=== PATIENT | male | born 1950 | race Caucasian/White ===

== ENCOUNTER 2023-01-09 12:51 | Emergency (ER) | payer MEDICARE ==
[2023-01-09] MEDS ORDERED: SODIUM CHLORIDE 0.9% 500 ML 500 ML IV STA (13:05)
[2023-01-09 13:17] LABS: Glucose,Whole Blood 161 mg/dL (70-110)
--- NOTE | 2023-01-09 13:18 | ED ---
General Adult HPI - General Stated complaint: TIA Time Seen by Provider: 01/09/23 12:55 Source: patient, RN notes reviewed, old records reviewed Limitations: no limitations - History of Present Illness Initial comments: 72-year-old male presenting for evaluation of left-sided weakness, and expressive aphasia. Symptoms began at approximately 12:15 and resolved very quickly. The patient was transported by paramedics without focal neurological findings. He was hypertensive during transport. Patient has no prior history of CVA or TIA. He has history of hypertension and diabetes. No chest pain, no fever. - Related Data Allergies Allergy/AdvReac Type Severity Reaction Status Date / Time No Known Allergies Allergy Verified 01/09/23 13:19 Review of Systems ROS Statement: Those systems with pertinent positive or pertinent negative responses have been documented in the HPI. ROS Other: All systems not noted in ROS Statement are negative. General Exam General appearance: alert, in no apparent distress Head exam: Present: atraumatic, normocephalic Eye exam: Present: normal appearance, PERRL ENT exam: Present: normal exam Neck exam: Present: normal inspection. Absent: tenderness, meningismus Respiratory exam: Present: normal lung sounds bilaterally. Absent: respiratory distress, wheezes Cardiovascular Exam: Present: regular rate, normal rhythm GI/Abdominal exam: Present: soft. Absent: distended, tenderness Extremities exam: Present: normal inspection, normal capillary refill. Absent: pedal edema Neurological exam: Present: alert, oriented X3, CN II-XII intact, other (NIH of 0). Absent: motor sensory deficit Psychiatric exam: Present: normal affect, normal mood Skin exam: Present: warm, dry, intact. Absent: cyanosis, diaphoretic Course Vital Signs 01/09/23 01/09/23 01/09/23 13:04 13:45 13:53 Temperature 97.6 F Pulse Rate 89 91 84 Respiratory 18 18 Rate Blood Pressure 195/105 173/103 170/90 O2 Sat by Pulse 98 97 99 Oximetry - Reevaluation(s) Reevaluation #1: 01/09/23 13:00 Patient arrives to emergency department without current complaint and NIH is 0. Symptoms initially began at 12:15. Reevaluation #2: 01/09/23 13:14 Patient developed complete left-sided hemiparesis and dysarthria with expressive aphasia. 06/22/23 13:[address] Snell, both agreed that TPA is appropriate for this patient. Both patient and patient's agreed and consent to administration. Reevaluation #3: 01/09/23 14:20 Dr. Snell requests transfer to [facility] Medical Decision Making - Medical Decision Making Was pt. sent in by a medical professional or institution (, [facility], [employer], urgent care, hospital, or fdc...) When possible be specific @ -No Did you speak to anyone other than the patient for history (EMS, parent, family, police, friend...)? What history was obtained from this source @ -[Yes Did you review nursing and triage notes (agree or disagree)? Why? @ -I reviewed and agree with nursing and triage notes Were old charts reviewed (outside hosp., previous admission, EMS record, old EKG, old radiological studies, urgent care reports/EKG's, fdc records)? Report findings @ -No old charts were reviewed Differential Diagnosis (chest pain, altered mental status, abdominal pain women, abdominal pain men, vaginal bleeding, weakness, fever, dyspnea, syncope, headache, dizziness, GI bleed, back pain, seizure, CVA, palpatations, mental health, musculoskeletal)? @ -Differential CVA Ischemic stroke, hemorrhagic stroke, brain tumor, atypical migraine, Wernicke's encephalopathy, seizure, multiple sclerosis, meningitis, encephalitis, hypoglycemia, Guillain-Thomson, electrolytes disturbance, myasthenia gravis.... This is not meant to be an all-inclusive list EKG interpreted by me (3pts min.). @ -[EKG: Sinus rhythm rate of 79, NV interval 193, QRS duration 108, QTC [address] segment elevation X-rays interpreted by me (1pt min.). @ -None done CT interpreted by me (1pt min.). @ -None done U/S interpreted by me (1pt. min.). @ -None done What testing was considered but not performed or refused? (CT, X-rays, U/S, labs)? Why? @ -None What meds were considered but not given or refused? Why? @ -None Did you discuss the management of the patient with other professionals (professionals i.e. , [facility], [employer], lab, RT, psych nurse, social insurance specialist, impregnator, teacher, medical officer psychiatry, immigration case worker)? Give summary @ -[Stroke Dr. Snell. Was smoking cessation discussed for >3mins.? @ -No Was critical care preformed (if so, how long)? @ -[yes 35 Were there social determinants of health that impacted care today? How? (Homelessness, low income, unemployed, alcoholism, drug addiction, transportation, low edu. Level, literacy, decrease access to med. care, half-way, rehab)? @ -No Was there de-escalation of care discussed even if they declined (Discuss DNR or withdrawal of care, Hospice)? DNR status @ -No What co-morbidities impacted this encounter? (DM, HTN, Smoking, COPD, CAD, Cancer, CVA, ARF, Chemo, Hep., AIDS, mental health diagnosis, sleep apnea, morbid obesity)? @ -Diabetes, hypertension Was patient admitted / discharged? Hospital course, mention meds given and route, prescriptions, significant lab abnormalities, going to OR and other pertinent info. @ -72-year-old male presenting with stroke symptoms initially resolved however shortly after eating in the emergency department his symptoms returned and were significant, NIH of 15 with left hemiplegia, dysarthria, expressive aphasia. Patient was a TPA candidate, TPA was immediately ordered the patient was taken for CT and CT angiography. CT was negative for intracranial hemorrhage and TPA was administered. There was near complete resolution in patient's symptoms upon reevaluation. The CT angiography showed ICA occlusion this was reviewed by the interventionalist and felt to require transfer. The patient will be transferred to [facility]. Undiagnosed new problem with uncertain prognosis? @ -No Drug Therapy requiring intensive monitoring for toxicity (Heparin, Nitro, Insu kyleigh, Cardizem)? @ -No Were any procedures done? @ -No Diagnosis/symptom? @ -Acute CVA status post TPA Acute, or Chronic, or Acute on Chronic? @ -Acute Uncomplicated (without systemic symptoms) or Complicated (systemic symptoms)? @ -Complicated Side effects of treatment? @ -No Exacerbation, Progression, or Severe Exacerbation? @ -No Poses a threat to life or bodily function? How? (Chest pain, [place], [place], pneumonia, PE, COPD, DKA, ARF, appy, cholecystitis, CVA, Diverticulitis, Homicidal, Suicidal, threat to staff... and all critical care pts) @ -Yes, CVA - Lab Data Result diagrams: 01/09/23 13:53 Lab Results 01/09/23 01/09/23 Range/Units 13:16 13:53 WBC 8.0 (3.8-10.6) k/uL RBC 4.73 (4.30-5.90) m/uL Hgb 13.4 (13.0-17.5) gm/dL Hct 39.9 (39.0-53.0) % MCV 84.5 (80.0-100.0) fL MCH 28.3 (25.0-35.0) pg MCHC 33.5 (31.0-37.0) g/dL RDW 13.6 (11.5-15.5) % Plt Count 198 (150-450) k/uL MPV 8.8 Neutrophils % 77 % Lymphocytes % 14 % Monocytes % 5 % Eosinophils % 3 % Basophils % 1 % Neutrophils # 6.2 (1.3-7.7) k/uL Lymphocytes # 1.1 (1.0-4.8) k/uL Monocytes # 0.4 (0-1.0) k/uL Eosinophils # 0.2 (0-0.7) k/uL Basophils # 0.0 (0-0.2) k/uL POC Glucose (mg/dL) 161 H (70-110) mg/dL POC Glu Creative Developer ID [email or web address] Critical Care Time Critical Care Time: Yes Total Critical Care Time: 35 Disposition Clinical Impression: Cerebrovascular accident (CVA) Disposition: ADMITTED IP TO THIS HOSP Condition: Serious Is patient prescribed a controlled substance at d/c from ED?: No Referrals: None,Stated [REFERRING] - 1-2 days Time of Disposition: 14:00 - Out of Hospital Transfer - Req. Specs Out of Hospital Transfer - Requested Specifics: Other Emergency Center ([facility]
[2023-01-09] MEDS ORDERED: ALTEPLASE BOLUS FOR STROKE 9 MG in EMPTY SYRINGE 1 SYR IV STA (13:20)
[2023-01-09] MEDS ORDERED: ALTEPLASE 81 MG in EMPTY BAG 1 BAG IV STA (13:20)
[2023-01-09] MEDS ORDERED: Alteplase PER PHARMACY Stroke 1 EACH MISC MISCELLANE PRN (13:23)
[2023-01-09] MEDS ORDERED: SODIUM CHLORIDE 0.9% 1,000 ML IV SCH (13:45)
--- NOTE | 2023-01-09 13:52 | XR ---
EXAMINATION TYPE: XR chest 1V portable DATE OF EXAM: 01/09/2023 COMPARISON: NONE HISTORY: Mental status change TECHNIQUE: Single frontal view of the chest is obtained. FINDINGS: A limited inspiration. No evidence consolidation, pleural effusion or pneumothorax. Diffus e osteopenia. Heart size upper limits of normal with no overt failure. Underlying COPD suspected. IMPRESSION: No acute process.
--- NOTE | 2023-01-09 13:53 | CT ---
EXAMINATION TYPE: CT brain wo con DATE OF EXAM: 01/09/2023 COMPARISON: None HISTORY: Neuro deficits, code stroke CT DLP: 1196.[address] of the brain was performed. The ventricles, basal cisterns and sulci overlying the cerebral convexities demonstrate mild enlargem ent. There is no evidence for intracranial hemorrhage or sulcal effacement. There is decreased attenuation about the periventricular white matter and deep white matter of both c erebral hemispheres, compatible with chronic small vessel ischemia. Differential diagnosis does inclu de demyelination. No mass effects are seen.No midline shift. Osseous calvarium is intact. Chronic paranasal sinusitis. If symptoms persist consider MRI. IMPRESSION: 1. Age related atrophic and chronic small vessel ischemic change without acute intracranial process s een at this time.
--- NOTE | 2023-01-09 14:00 | CT ---
EXAMINATION TYPE: CT angio head neck DATE OF EXAM: 01/09/2023 COMPARISON: HISTORY: Neuro deficits code stroke CT DLP: 433.2 mGycm CONTRAST: Performed with IV Contrast, patient injected with 65 mL of Isovue 370. Combination Contrast CTA cervical carotids and [place] CTA cervical carotids with 3-D recons truction Contrast CTA of the cervical carotids was performed 3-D reconstruction imaging obtained at a separate workstation. Right carotid system: Mild plaque is seen of the right common carotid artery. There is occlusion of t he right internal carotid artery. ECA is patent. Right vertebral artery appears unremarkable. Left carotid system: Mild plaque is seen of the left common carotid artery. There is mild plaque als o noted at the carotid bulb and proximal ICA. No significant diameter reduction. ECA is patent. Lef t vertebral artery appears unremarkable. 7 mm pulmonary nodule right upper lobe requires further evaluation with CT chest which can be perform ed on an outpatient basis. Chronic pansinusitis. IMPRESSION: 1. Occlusion right ICA. 2. Calcified plaque left ICA without hemodynamically significant stenosis. CTA [place] with 3-D reconstruction Contrast CTA of the [place] was performed 3-D reconstruction imaging obtained at a separate workstation. Vertebrobasilar system as well as intracranial portions of the internal carotid arteries and their ma saul tributaries are patent. Occlusion right ICA. Otherwise symmetric opacification of the intracrani al vasculature. I do not see evidence for sizable aneurysm or vascular malformation. Please note MRI provides greater sensitivity and specificity. Visualized brain appears grossly unremarkable. IMPRESSION: 1. Occlusion right ICA. NASCET criteria was used in interpretation of this exam?
[2023-01-09 14:06] LABS: Basophils % (A) 1 %; Eosinophils # (A) 0.2 k/uL (0-0.7); Eosinophils % (A) 3 %; HCT 39.9 % (39.0-53.0); HGB 13.4 gm/dL (13.0-17.5); Lymphocytes # (A) 1.1 k/uL (1.0-4.8); Lymphocytes % (A) 14 %; MCH 28.3 pg (25.0-35.0); MCHC 33.5 g/dL (31.0-37.0); MCV 84.5 fL (80.0-100.0); Mean Platelet Volume 8.8; Monocytes # (A) 0.4 k/uL (0-1.0); Monocytes % (A) 5 %; Neutrophils # (A) 6.2 k/uL (1.3-7.7); Neutrophils % (A) 77 %; Platelet Count 198 k/uL (150-450); RBC 4.73 m/uL (4.30-5.90); RDW 13.6 % (11.5-15.5)
[2023-01-09] MEDS ORDERED: SODIUM CHLORIDE 0.9% 50 ML MINI-BAG IV ONE (14:20)
[2023-01-09 14:21] LABS: INR 0.9 (<1.2); Prothrombin Time 9.7 sec (9.0-12.0)
[2023-01-09 14:32] LABS: Partial Thromboplastin Time 19.8 sec (22.0-30.0)
[2023-01-09 14:40] LABS: ALT 17 U/L (4-49); AST 17 U/L (17-59); African American GFR (CKD) 58 (>60 ml/min/1.73 sqM); Albumin 4.1 g/dL (3.5-5.0); Alkaline Phosphatase 80 U/L (38-126); Anion Gap 10 mmol/L; Blood Urea Nitrogen 28 mg/dL (9-20); Calcium 8.8 mg/dL (8.4-10.2); Carbon Dioxide 21 mmol/L (22-30); Chloride 108 mmol/L (98-107); Creatine Kinase 33 U/L (55-170); Glucose 135 mg/dL (74-99); Non-African American GFR(CKD) 50 (>60 ml/min/1.73 sqM); Potassium 4.5 mmol/L (3.5-5.1); Sodium 139 mmol/L (137-145); Total Bilirubin 0.4 mg/dL (0.2-1.3); Total Protein 6.7 g/dL (6.3-8.2)
[2023-01-09 15:47] VITALS: RESP 19
[2023-01-09 15:58] VITALS: BP 178/85; PULSE 82; TEMP 98.3
== END 2023-01-09 15:30 | disposition other institution (70) ==
LOC: EC 12:51
DX: I63.9 Cerebral infarction, unspecified (principal); R29.700 NIHSS score 0; E11.9 Type 2 diabetes mellitus without complications; I10 Essential (primary) hypertension
CPT/HCPCS: 36415; 93005; 80053; 82550; 84484; 85025; 85610; 85730; 71045; 70496; 70450; 70498; 99291; 96365; J2997; Q9967

== ENCOUNTER 2023-03-21 14:32 | Emergency (ER) | payer MEDICARE ==
[2023-03-21 14:44] VITALS: TEMP 97.6
[2023-03-21 16:33] LABS: Appearance,Urine Clear (Clear); Bilirubin,Urine Negative (Negative); Blood,Urine Moderate (Negative); Color,Urine Orange; Glucose,Urine (UA) 4+ (Negative); Ketones,Urine Negative (Negative); Leukocyte Esterase,Urine Negative (Negative); Mucus,Urine Rare /hpf; Nitrite,Urine Positive (Negative); PH, Urine 5.5 (5.0-8.0); Protein,Urine Negative (Negative); RBC,Urine 72 /hpf (0-5); Specific Gravity,Urine 1.025 (1.001-1.035); Urobilinogen,Urine <2.0 mg/dL (<2.0); WBC,Urine <1 /hpf (0-5)
--- NOTE | 2023-03-21 16:40 | ED ---
General Adult HPI - General Chief complaint: Urogenital Stated complaint: urination trouble Time Seen by Provider: 03/21/23 15:04 Source: patient Mode of arrival: ambulatory Limitations: no limitations - History of Present Illness Initial comments: 73-year-old male with recent diagnosis of CVA who presents emergency room with urinary retention. Patient has CVA and was transferred from [facility] to [facility]. He underwent angiography where he had injury to his right femoral artery. Patient had to go back for surgery last Friday to have the vessel repaired by vascular surgery with evacuation of bleeding. States that he had a catheter in during his hospital stay. They did take it out before he was discharged home earlier this week. He states that he has been home and the past 4 days he has had suprapubic discomfort. He has been unable to sleep at night as he has been getting up frequently to use the bathroom. He has had very low urine output. He denies previous history of BPH. Does not take Flomax but was given this in the hospital. He denies fevers. He went to an urgent care yesterday who placed him on Pyridium. States it made his urine orange however did not help his symptoms. No other alleviating, precipitating or modifying factors - Related Data Home Medications Medication Instructions Recorded Confirmed Empagliflozin [Jardiance] 25 mg PO W/SUPPER 01/09/23 01/09/23 amLODIPine BESYLATE/BENAZEPRIL 1 cap PO DAILY 01/09/23 01/09/23 [amLODIPine BESYLATE/BENAZEPRIL 5-10 mg] metFORMIN HCL 1,000 mg PO BID 01/09/23 01/09/23 Allergies Allergy/AdvReac Type Severity Reaction Status Date / Time latex Allergy Rash/Hives Verified 03/21/23 14:44 Penicillins Allergy Unknown Verified 03/21/23 14:44 Childhood Review of Systems ROS Statement: Those systems with pertinent positive or pertinent negative responses have been documented in the HPI. ROS Other: All systems not noted in ROS Statement are negative. 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 History of Any Multi-Drug Resistant Organisms: None Reported Past Surgical History: No Surgical Hx Reported Past Psychological History: No Psychological Hx Reported Smoking Status: Never smoker Past Alcohol Use History: Rare Past Drug Use History: None Reported General Exam Limitations: no limitations General appearance: alert, in no apparent distress Head exam: Present: atraumatic, normocephalic, normal inspection Eye exam: Present: normal appearance, PERRL, EOMI. Absent: scleral icterus, con junctival injection, periorbital swelling ENT exam: Present: normal exam, mucous membranes moist Neck exam: Present: normal inspection. Absent: tenderness, meningismus, lymphadenopathy Respiratory exam: Present: normal lung sounds bilaterally. Absent: respiratory distress, wheezes, rales, rhonchi, stridor Cardiovascular Exam: Present: regular rate, normal rhythm, normal heart sounds. Absent: systolic murmur, diastolic murmur, rubs, gallop, clicks GI/Abdominal exam: Present: soft, distended, tenderness (Suprapubic), normal bowel sounds, other (Right groin incision is clean, dry and intact. No dehiscence of the tissue). Absent: guarding, rebound, rigid Extremities exam: Present: normal inspection, full ROM, normal capillary refill. Absent: tenderness, pedal edema, joint swelling, calf tenderness Back exam: Present: normal inspection Neurological exam: Present: alert, oriented X3, CN II-XII intact Psychiatric exam: Present: normal affect, normal mood Skin exam: Present: warm, dry, intact, normal color. Absent: rash Course Vital Signs 03/21/23 03/21/23 14:40 17:14 Temperature 97.6 F Pulse Rate 94 80 Respiratory 20 18 Rate Blood Pressure 121/78 131/72 O2 Sat by Pulse 100 98 Oximetry Medical Decision Making - Medical Decision Making Was pt. sent in by a medical professional or institution (, PA, [employer], urgent care, hospital, or custodial...) When possible be specific @ -No Did you speak to anyone other than the patient for history (EMS, parent, family, police, friend...)? What history was obtained from this source @ -I spoke with the patient's Did you review nursing and triage notes (agree or disagree)? Why? @ -I reviewed and agree with nursing and triage notes Were old charts reviewed (outside hosp., previous admission, EMS record, old EKG, old radiological studies, urgent care reports/EKG's, custodial records)? Report findings @ -No old charts were reviewed Differential Diagnosis (chest pain, altered mental status, abdominal pain women, abdominal pain men, vaginal bleeding, weakness, fever, dyspnea, syncope, headache, dizziness, GI bleed, back pain, seizure, CVA, palpatations, mental health, musculoskeletal)? @ -Urinary retention, cauda equina, UTI, kidney stone EKG interpreted by me (3pts min.). @ -Not done X-rays interpreted by me (1pt min.). @ -None done CT interpreted by me (1pt min.). @ -None done U/S interpreted by me (1pt. min.). @ -None done What testing was considered but not performed or refused? (CT, X-rays, U/S, labs)? Why? @ -None What meds were considered but not given or refused? Why? @ -None Did you discuss the management of the patient with other professionals (professionals i.e. , PA, [employer], lab, RT, psych nurse, social media assistant, pulverizer, teacher, founder and chief executive officer, correctional case manager)? Give summary @ -No Was smoking cessation discussed for >3mins.? @ -No Was critical care preformed (if so, how long)? @ -No Were there social determinants of health that impacted care today? How? (Homelessness, low income, unemployed, alcoholism, drug addiction, transportation, low edu. Level, literacy, decrease access to med. care, care home, rehab)? @ -No Was there de-escalation of care discussed even if they declined (Discuss DNR or withdrawal of care, Hospice)? DNR status @ -No What co-morbidities impacted this encounter? (DM, HTN, Smoking, COPD, CAD, Cancer, CVA, ARF, Chemo, Hep., AIDS, mental health diagnosis, sleep apnea, morbid obesity)? @ -CVA Was patient admitted / discharged? Hospital course, mention meds given and route, prescriptions, significant lab abnormalities, going to OR and other pertinent info. @ -Upon arrival patient was placed into room 17. A thorough history and physical exam is performed. Patient is bladder scan does have 1000 mL of urine in his bladder. Camacho catheter is placed. Patient does put out 1500 mL of urine. Urine sample does not demonstrate any signs of infection. At this time the patient will be discharged home with the catheter in place. Instructed that it must be removed within 1-2 weeks by the urologist. Surgical site looks intact. Return for any new or worsening symptoms. Patient was agreeable discharged in stable condition Undiagnosed new problem with uncertain prognosis? @ -No Drug Therapy requiring intensive monitoring for toxicity (Heparin, Nitro, Insul in, Cardizem)? @ -No Were any procedures done? @ -No Diagnosis/symptom? @ -Acute urinary retention, recent right femoral artery dissection Acute, or Chronic, or Acute on Chronic? @ -Acute Uncomplicated (without systemic symptoms) or Complicated (systemic symptoms)? @ -Complicated Side effects of treatment? @ -No Exacerbation, Progression, or Severe Exacerbation? @ -No Poses a threat to life or bodily function? How? (Chest pain, [place], [place], pneumonia, PE, COPD, DKA, ARF, appy, cholecystitis, CVA, Diverticulitis, Homicidal, Suicidal, threat to staff... and all critical care pts) @ -No - Lab Data Lab Results 03/21/23 Range/Units 15:45 Urine Color [place] Urine Appearance Clear (Clear) Urine pH 5.5 (5.0-8.0) Ur Specific [place] 1.025 (1.001-1.035) Urine Protein Negative (Negative) Urine Glucose (UA) 4+ H (Negative) Urine Ketones Negative (Negative) Urine Blood Moderate H (Negative) Urine Nitrite Positive (Negative) Urine Bilirubin Negative (Negative) Urine Urobilinogen <2.0 (<2.0) mg/dL Ur Leukocyte Esterase Negative (Negative) Urine RBC 72 H (0-5) /hpf Urine WBC <1 (0-5) /hpf Urine Mucus Rare H (None) /hpf Disposition Clinical Impression: Urinary retention Disposition: HOME SELF-CARE Condition: Stable Instructions (If sedation given, give patient instructions): Urinary Retention in Men (ED) Additional Instructions: Please follow-up with the urologist. The catheter should be in place for approximately 1-2 weeks. Return for any new or worsening symptoms Is patient prescribed a controlled substance at d/c from ED?: No Referrals: Dane Parada MD [Primary Care Provider] - 1-2 days Oracio Bryan MD [STAFF PHYSICIAN] - 1-2 days Time of Disposition: 16:40
[2023-03-21 17:17] VITALS: BP 131/72; PULSE 80; RESP 18
== END 2023-03-21 17:19 | disposition home or self-care (01) ==
LOC: EC 14:32
DX: R33.9 Retention of urine, unspecified (principal); I10 Essential (primary) hypertension; Z88.0 Allergy status to penicillin; Z91.040 Latex allergy status; Z79.899 Other long term (current) drug therapy
CPT/HCPCS: 51702; 81001; 99284

== ENCOUNTER 2023-04-01 03:58 | Emergency (ER) | payer MEDICARE ==
--- NOTE | 2023-04-01 06:34 | ED ---
General Adult HPI - History of Present Illness Initial comments: Patient's chart was performed during downtime. Please see downtime documentation. Briefly, patient is a 73-year-old male he has history of urinary retention. He was seen at urologist office yesterday for urinary retention. Camacho catheter was removed. The Camacho catheter had been in there for several days. Patient was instructed to come to the emergency department if he was not able to urinate. ED course: Patient seen and evaluated at bedside. Camacho catheter was placed with drainage of approximately 1000 mL of urine. Patient reported immediate relief. He still to follow-up again with urology. - Related Data Home Medications Medication Instructions Recorded Confirmed Empagliflozin [Jardiance] 25 mg PO W/SUPPER 01/09/23 01/09/23 amLODIPine BESYLATE/BENAZEPRIL 1 cap PO DAILY 01/09/23 01/09/23 [amLODIPine BESYLATE/BENAZEPRIL 5-10 mg] metFORMIN HCL 1,000 mg PO BID 01/09/23 01/09/23 Allergies Allergy/AdvReac Type Severity Reaction Status Date / Time latex Allergy Rash/Hives Verified 03/21/23 14:44 Penicillins Allergy Unknown Verified 03/21/23 14:44 Childhood Review of Systems ROS Statement: Those systems with pertinent positive or pertinent negative responses have been documented in the HPI. ROS Other: All systems not noted in ROS Statement are negative. 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 History of Any Multi-Drug Resistant Organisms: None Reported Past Surgical History: No Surgical Hx Reported Past Psychological History: No Psychological Hx Reported Smoking Status: Never smoker Past Alcohol Use History: Rare Past Drug Use History: None Reported Disposition Clinical Impression: Urinary retention Disposition: HOME SELF-CARE Condition: Good Instructions (If sedation given, give patient instructions): Urinary Retention in Men (ED) Is patient prescribed a controlled substance at d/c from ED?: No Referrals: Oracio Bryan MD [STAFF PHYSICIAN] - 1-2 days Time of Disposition: 06:34
== END 2023-04-01 06:30 | disposition home or self-care (01) ==
LOC: EC 03:58
DX: R33.9 Retention of urine, unspecified (principal); I10 Essential (primary) hypertension; E11.9 Type 2 diabetes mellitus without complications; Z79.84 Long term (current) use of oral hypoglycemic drugs; Z79.899 Other long term (current) drug therapy; Z88.0 Allergy status to penicillin; Z91.040 Latex allergy status
CPT/HCPCS: 51702; 99283

== ENCOUNTER 2023-04-29 20:16 | Emergency (ER) | payer MEDICARE ==
[2023-04-29 20:30] VITALS: BP 165/79; PULSE 129; RESP 24; TEMP 98.3
--- NOTE | 2023-04-29 20:58 | ED ---
General Adult HPI - General Chief complaint: Urogenital Stated complaint: Bladder retention Time Seen by Provider: 04/29/23 20:56 Source: patient, RN notes reviewed Mode of arrival: ambulatory Limitations: no limitations - History of Present Illness Initial comments: 73-year-old male presents emergency Department chief complaint unable to urinate. Patient states he had a kidney stone removal recently states he had a catheter was just removed 2 days ago. Patient states she's had issues with his prostate be enlarged in the past and has had multiple Camacho catheters. He is unable to urinate states he has lower abdominal pressure. - Related Data Home Medications Medication Instructions Recorded Confirmed Empagliflozin [Jardiance] 25 mg PO W/SUPPER 01/09/23 01/09/23 amLODIPine BESYLATE/BENAZEPRIL 1 cap PO DAILY 01/09/23 01/09/23 [amLODIPine BESYLATE/BENAZEPRIL 5-10 mg] metFORMIN HCL 1,000 mg PO BID 01/09/23 01/09/23 Previous Rx's Medication Instructions Recorded Sulfamethox-Tmp 800-160Mg [Bactrim 1 each PO Q12HR #14 tab 04/29/23 Ds] Allergies Allergy/AdvReac Type Severity Reaction Status Date / Time latex Allergy Rash/Hives Verified 04/29/23 20:22 Penicillins Allergy Unknown Verified 04/29/23 20:22 Childhood Review of Systems ROS Statement: Those systems with pertinent positive or pertinent negative responses have been documented in the HPI. ROS Other: All systems not noted in ROS Statement are negative. 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 History of Any Multi-Drug Resistant Organisms: None Reported Past Surgical History: No Surgical Hx Reported Past Psychological History: No Psychological Hx Reported Smoking Status: Never smoker Past Alcohol Use History: Rare Past Drug Use History: None Reported General Exam - General Exam Comments Initial Comments: Visual Physical Exam Vital signs reviewed General: Well-appearing, nontoxic, no acute distress. Head: Normocephalic, atraumatic Eyes: PERRLA, EOMI ENT: Airway patent Chest: Nonlabored breathing Skin: No visual rash, normal skin tone Neuro: Alert and oriented 3 Musculoskeletal: No gross abnormalities Limitations: no limitations General appearance: alert, in no apparent distress Head exam: Present: atraumatic, normocephalic, normal inspection Eye exam: Present: normal appearance, PERRL, EOMI. Absent: scleral icterus, conjunctival injection, periorbital swelling Respiratory exam: Present: normal lung sounds bilaterally. Absent: respiratory distress, wheezes, rales, rhonchi, stridor Cardiovascular Exam: Present: normal rhythm, tachycardia, normal heart sounds. Absent: systolic murmur, diastolic murmur, rubs, gallop, clicks GI/Abdominal exam: Present: soft, distended, tenderness, normal bowel sounds. Absent: guarding, rebound, rigid Back exam: Absent: CVA tenderness (R), CVA tenderness (L) Course Vital Signs 04/29/23 20:18 Temperature 98.3 F Pulse Rate 129 H Respiratory 24 Rate Blood Pressure 165/79 O2 Sat by Pulse 99 Oximetry Medical Decision Making - Medical Decision Making I completed the quick note portion of this chart Signed Cullen Nieto PA-C Was pt. sent in by a medical professional or institution (JULIA Prater, TANK CALIBRATOR, urgent care, hospital, or usp...) When possible be specific @ -No Did you speak to anyone other than the patient for history (EMS, parent, family, police, friend...)? What history was obtained from this source @ -No Did you review nursing and triage notes (agree or disagree)? Why? @ -I reviewed and agree with nursing and triage notes Were old charts reviewed (outside hosp., previous admission, EMS record, old EKG, old radiological studies, urgent care reports/EKG's, usp records)? Report findings @ -No old charts were reviewed Differential Diagnosis (chest pain, altered mental status, abdominal pain women, abdominal pain men, vaginal bleeding, weakness, fever, dyspnea, syncope, headache, dizziness, GI bleed, back pain, seizure, CVA, palpatations, mental health, musculoskeletal)? @ -Urinary retention, abdominal pain, UTI EKG interpreted by me (3pts min.). @ -None X-rays interpreted by me (1pt min.). @ -None done CT interpreted by me (1pt min.). @ -None done U/S interpreted by me (1pt. min.). @ -None done What testing was considered but not performed or refused? (CT, X-rays, U/S, labs)? Why? @ -None What meds were considered but not given or refused? Why? @ -None Did you discuss the management of the patient with other professionals (professionals i.e. , PA, TANK CALIBRATOR, lab, RT, psych nurse, social science analyst, procedure rn, teacher, canine enforcement officer, shoe parts caser)? Give summary @ -No Was smoking cessation discussed for >3mins.? @ -No Was critical care preformed (if so, how long)? @ -No Were there social determinants of health that impacted care today? How? (Homelessness, low income, unemployed, alcoholism, drug addiction, transportation, low edu. Level, literacy, decrease access to med. care, long-term, rehab)? @ -No Was there de-escalation of care discussed even if they declined (Discuss DNR or withdrawal of care, Hospice)? DNR status @ -No What co-morbidities impacted this encounter? (DM, HTN, Smoking, COPD, CAD, Cancer, CVA, ARF, Chemo, Hep., AIDS, mental health diagnosis, sleep apnea, morbid obesity)? @ -None Was patient admitted / discharged? Hospital course, mention meds given and route, prescriptions, significant lab abnormalities, going to OR and other pertinent info. @ -Camacho catheter was placed by RN patient had full relief of symptoms. Patient did have 1400ml of urine. Patient is discharged in stable condition. Undiagnosed new problem with uncertain prognosis? @ -No Drug Therapy requiring intensive monitoring for toxicity (Heparin, Nitro, Insulin, Cardizem)? @ -No Were any procedures done? @ -No Diagnosis/symptom? @ -Urinary retention Acute, or Chronic, or Acute on Chronic? @ -Acute Uncomplicated (without systemic symptoms) or Complicated (systemic symptoms)? @ -Uncomplicated Side effects of treatment? @ -No Exacerbation, Progression, or Severe Exacerbation? @ -No Poses a threat to life or bodily function? How? (Chest pain, [place], [place], pneumonia, PE, COPD, DKA, ARF, appy, cholecystitis, CVA, Diverticulitis, Homicidal, Suicidal, threat to staff... and all critical care pts) @ -No - Lab Data Lab Results 04/29/23 Range/Units 22:16 Urine Color Colorless Urine Appearance Clear (Clear) Urine pH 5.5 (5.0-8.0) Ur Specific [place] 1.022 (1.001-1.035) Urine Protein Trace H (Negative) Urine Glucose (UA) 4+ H (Negative) Urine Ketones Negative (Negative) Urine Blood Large H (Negative) Urine Nitrite Negative (Negative) Urine Bilirubin Negative (Negative) Urine Urobilinogen <2.0 (<2.0) mg/dL Ur Leukocyte Esterase Large H (Negative) Urine RBC 124 H (0-5) /hpf Urine WBC 76 H (0-5) /hpf Urine WBC Clumps Occasional H (None) /hpf Ur Squamous Epith Cells <1 (0-4) /hpf Urine Bacteria Occasional H (None) /hpf Urine Mucus Rare H (None) /hpf Disposition Clinical Impression: Urinary retention, UTI (urinary tract infection) Disposition: HOME SELF-CARE Condition: Stable Instructions (If sedation given, give patient instructions): Urinary Retention in Men (ED) Additional Instructions: Please return to the Emergency Department if symptoms worsen or any other concerns. Prescriptions: Sulfamethox-Tmp 800-160Mg [Bactrim Ds] 1 each PO Q12HR #14 tab Is patient prescribed a controlled substance at d/c from ED?: No Referrals: Dane Parada MD [Primary Care Provider] - 1-2 days Oracio Bryan MD [STAFF PHYSICIAN] - 1-2 days Time of Disposition: 23:00
[2023-04-29 22:53] LABS: Appearance,Urine Clear (Clear); Bacteria,Urine Occasional /hpf; Bilirubin,Urine Negative (Negative); Blood,Urine Large (Negative); Color,Urine Colorless; Glucose,Urine (UA) 4+ (Negative); Ketones,Urine Negative (Negative); Leukocyte Esterase,Urine Large (Negative); Mucus,Urine Rare /hpf; Nitrite,Urine Negative (Negative); PH, Urine 5.5 (5.0-8.0); Protein,Urine Trace (Negative); RBC,Urine 124 /hpf (0-5); Specific Gravity,Urine 1.022 (1.001-1.035); Squamous Epithelial Cell,Urine <1 /hpf (0-4); Urobilinogen,Urine <2.0 mg/dL (<2.0); WBC,Urine 76 /hpf (0-5)
[2023-04-29] MEDS ORDERED: SULFAMETHOX-TMP 800-160MG 1 EACH TAB PO STA (23:38)
== END 2023-04-30 00:15 | disposition home or self-care (01) ==
LOC: EC 20:16
DX: N39.0 Urinary tract infection, site not specified (principal); R33.9 Retention of urine, unspecified; I10 Essential (primary) hypertension; Z79.899 Other long term (current) drug therapy; Z88.0 Allergy status to penicillin; Z91.040 Latex allergy status
CPT/HCPCS: 51702; 81001; 87086; 99284

== ENCOUNTER → 2023-04-29 | Outpatient (CLI) | payer MEDICARE ==
[2023-04-29 15:14] LABS: Basophils # (A) 0.06 X 10*3/uL (0.00-0.10); Eosinophils % (A) 8.5 %; HCT 29.5 % (39.6-50.0); Lymphocytes # (A) 0.99 X 10*3/uL (0.90-5.00); Lymphocytes % (A) 16.9 %; MCH 27.8 pg (27.0-32.0); MCHC 30.5 d/dL (32.0-37.0); Mean Platelet Volume 11.3 FL (9.5-12.2); Monocytes # (A) 0.46 X 10*3/uL (0.20-1.00); Monocytes % (A) 7.8 %; NRBC Per 100 WBC 0 X 10*3/uL (0.00-0.01); Neutrophils # (A) 3.84 X 10*3/uL (1.80-7.70); Neutrophils % (A) 65.5 %; Platelet Count 256 X 10*3/uL (140-440); RBC 3.24 X 10*6/uL (4.40-5.60); WBC 5.87 X 10*3/uL (4.50-10.00)
== END | disposition home or self-care (01) ==
LOC: LABWHC1 08:49
PROVIDERS: ATTEND Family Medicine
DX: N17.9 Acute kidney failure, unspecified (principal)
CPT/HCPCS: 36415; 85025

== ENCOUNTER → 2023-05-22 | Outpatient (CLI) | payer MEDICARE ==
[2023-05-22 16:25] LABS: Blood Urea Nitrogen 21.6 mg/dL (9.0-27.0); Calcium 9.3 mg/dL (8.7-10.3); Carbon Dioxide 20.2 mmol/L (21.6-31.8); Chloride 107 mmol/L (96-109); Chol/HDL Ratio 1.52 Ratio; Glucose 184 mg/dL (70-110); Potassium 3.9 mmol/L (3.5-5.5); Prostate Specific Antigen 3.84 ng/mL (0.000-6.500); Sodium 142 mmol/L (135-145); VLDL Calculation 11.92 mg/dL (5.00-40.00)
[2023-05-22 17:59] LABS: Urine Creatinine 61.3 mg/dL (39.0-259.0)
== END | disposition home or self-care (01) ==
LOC: LABWHC1 09:06
PROVIDERS: ATTEND Family Medicine
DX: Z12.5 Encounter for screening for malignant neoplasm of prostate (principal); I10 Essential (primary) hypertension; E11.9 Type 2 diabetes mellitus without complications
CPT/HCPCS: 36415; 80048; 80061; 82043; 82570; 83036; 84153

== ENCOUNTER 2023-06-12 07:34 | Emergency (ER) | payer MEDICARE ==
[2023-06-12 08:16] VITALS: RESP 18
--- NOTE | 2023-06-12 08:17 | ED ---
General Adult HPI - General Chief complaint: Urogenital Stated complaint: urinary retention Time Seen by Provider: 06/12/23 07:56 Source: patient, RN notes reviewed Mode of arrival: ambulatory Limitations: no limitations - History of Present Illness Initial comments: 73-year-old male with past medical history significant for TURP procedure performed on 06/09/[address] Hernandez presents the emergency department with urinary retention. Patient reports that he had his Camacho catheter removed yesterday in the afternoon. He has not had a true urinary void since 3:30 PM. He reports having a small bit of trouble and increased urinary frequency feeling like he has to urinate every 30 minutes. Denies any fevers, nausea vomiting, flank pain, hematuria. - Related Data Home Medications Medication Instructions Recorded Confirmed Empagliflozin [Jardiance] 25 mg PO W/SUPPER 01/09/23 01/09/23 amLODIPine BESYLATE/BENAZEPRIL 1 cap PO DAILY 01/09/23 01/09/23 [amLODIPine BESYLATE/BENAZEPRIL 5-10 mg] metFORMIN HCL 1,000 mg PO BID 01/09/23 01/09/23 Previous Rx's Medication Instructions Recorded Sulfamethox-Tmp 800-160Mg [Bactrim 1 each PO Q12HR #14 tab 04/29/23 Ds] Allergies Allergy/AdvReac Type Severity Reaction Status Date / Time latex Allergy Rash/Hives Verified 06/12/23 07:55 Penicillins Allergy Unknown Verified 06/12/23 07:55 Childhood Review of Systems ROS Statement: Those systems with pertinent positive or pertinent negative responses have been documented in the HPI. ROS Other: All systems not noted in ROS Statement are negative. 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 History of Any Multi-Drug Resistant Organisms: None Reported Past Surgical History: No Surgical Hx Reported Past Psychological History: No Psychological Hx Reported Smoking Status: Never smoker Past Alcohol Use History: Rare Past Drug Use History: None Reported General Exam - General Exam Comments Initial Comments: General: Alert, in no acute distress Head: atraumatic normocephalic. Eyes PERRL, EOMI intact, mucous membranes moist Respiratory: Lungs clear to auscultation bilaterally Cardiovascular: Heart rate regular rate and rhythm Abdominal: Soft without guarding or rebound Extremities: Normal inspection with full range of motion and normal capillary refill Neuroogic: alert and oriented 3, CN II-XII intact, able to ambulate with steady gait Skin: warm dry and intact with normal color Limitations: no limitations Course Vital Signs 06/12/23 07:52 Temperature 98.2 F Pulse Rate 88 Respiratory 18 Rate Blood Pressure 149/94 O2 Sat by Pulse 99 Oximetry - Reevaluation(s) Reevaluation #1: 06/12/23 08:[address] Ashley, urologist director of clinical applications who recommends placing 18- Prydeinig coud to have patient follow-up with Dr. Bryan on Friday06/16/2023 Reevaluation #2: 06/12/23 08:45 patient reevaluated. 500 mL of clear yellow urine collection bag. Medical Decision Making - Medical Decision Making Was pt. sent in by a medical professional or institution (, PA, CERTIFIED PARALEGAL, urgent care, hospital, or residential...) When possible be specific @ -[No] Did you speak to anyone other than the patient for history (EMS, parent, family, police, friend...)? What history was obtained from this source @ -[No] Did you review nursing and triage notes (agree or disagree)? Why? @ -[I reviewed and agree with nursing and triage notes] Were old charts reviewed (outside hosp., previous admission, EMS record, old EKG, old radiological studies, urgent care reports/EKG's, residential records)? Report findings @ -[No old charts were reviewed] Differential Diagnosis (chest pain, altered mental status, abdominal pain women, abdominal pain men, vaginal bleeding, weakness, fever, dyspnea, syncope, headache, dizziness, GI bleed, back pain, seizure, CVA, palpatations, mental health, musculoskeletal)? @ -[not applicable] EKG interpreted by me (3pts min.). @ -[As above] X-rays interpreted by me (1pt min.). @ -[None done] CT interpreted by me (1pt min.). @ -[None done] U/S interpreted by me (1pt. min.). @ -[None done] What testing was considered but not performed or refused? (CT, X-rays, U/S, labs)? Why? @ -[None] What meds were considered but not given or refused? Why? @ -[None] Did you discuss the management of the patient with other professionals (professionals i.e. , PA, CERTIFIED PARALEGAL, lab, RT, psych nurse, social work msw, gas regulator repairer helper, teacher, promotion officer, shelter case manager)? Give summary @ -Is discussed with Dr. Pickering, urologist director of clinical applications who recommends consulting 18-Prydeinig coud and having him follow up with Dr. Hernandez on Friday06/16/2023 Was smoking cessation discussed for >3mins.? @ -[No] Was critical care preformed (if so, how long)? @ -[No] Were there social determinants of health that impacted care today? How? (Homelessness, low income, unemployed, alcoholism, drug addiction, transportation, low edu. Level, literacy, decrease access to med. care, long-term, rehab)? @ -[No] Was there de-escalation of care discussed even if they declined (Discuss DNR or withdrawal of care, Hospice)? DNR status @ -[No] What co-morbidities impacted this encounter? (DM, HTN, Smoking, COPD, CAD, Cancer, CVA, ARF, Chemo, Hep., AIDS, mental health diagnosis, sleep apnea, morbid obesity)? @ -[None] Was patient admitted / discharged? Hospital course, mention meds given and route, prescriptions, significant lab abnormalities, going to OR and other pertinent info. @ -Discharged home at approximately 73-year-old male presents to the emergency department with urinary retention. Bladder scan is 900mL. Patient had 18-Prydeinig coud catheter placed without difficulty. Agreeable with the plan for discharge and for close follow-up with Dr. Hernandez on 06/16. Return precautions discussed at length. Patient discharged in stable condition. Case discussed with Dr. Sidhu [facility] who agrees with plan of care Undiagnosed new problem with uncertain prognosis? @ -[No] Drug Therapy requiring intensive monitoring for toxicity (Heparin, Nitro, Insulin, Cardizem)? @ -[No] Were any procedures done? @ -[No] Diagnosis/symptom? @ urinary retention Acute, or Chronic, or Acute on Chronic? @ -Acute Uncomplicated (without systemic symptoms) or Complicated (systemic symptoms)? @ -Uncomplicated Side effects of treatment? @ -[No] Exacerbation, Progression, or Severe Exacerbation? @ -[No] Poses a threat to life or bodily function? How? (Chest pain, [place], [place], pneumonia, PE, COPD, DKA, ARF, appy, cholecystitis, CVA, Diverticulitis, Homicidal, Suicidal, threat to staff... and all critical care pts) @ Low likelihood Disposition Clinical Impression: Urinary retention Disposition: HOME SELF-CARE Condition: Stable Instructions (If sedation given, give patient instructions): Urinary Retention in Men (ED) Additional Instructions: Please have Camacho kept in place until Friday06/16/[address] Bryan on Friday as well Is patient prescribed a controlled substance at d/c from ED?: No Referrals: Dane Parada MD [Primary Care Provider] - 1-2 days Time of Disposition: 08:17
[2023-06-12 09:30] VITALS: BP 136/86; PULSE 82; TEMP 98.4
== END 2023-06-12 09:10 | disposition home or self-care (01) ==
LOC: EC 07:34
DX: R33.9 Retention of urine, unspecified (principal); I10 Essential (primary) hypertension; Z79.899 Other long term (current) drug therapy; Z88.0 Allergy status to penicillin; Z91.040 Latex allergy status
CPT/HCPCS: 51702; 51798; 99283

== ENCOUNTER 2023-07-14 17:53 | Emergency (ER) | payer MEDICARE ==
[2023-07-14 18:41] VITALS: TEMP 98.1
--- NOTE | 2023-07-14 19:07 | ED ---
Male Urogenital HPI - General Chief complaint: Urogenital Stated complaint: trouble with urination Time Seen by Provider: 07/14/23 18:58 Source: patient, RN notes reviewed Mode of arrival: ambulatory Limitations: no limitations - History of Present Illness Initial comments: This is a 73-year-old male who presents to the emergency department for urinary retention. He has had problems on and off with urinary retention over the last year and has had to go home with a Camacho catheter 5 times. States that this started with a stroke earlier this year, and he has had multiple medical problems since. He did just finish a 10 day course of Bactrim yesterday for a urinary tract infection and does follow with Dr. Bryan, urology. States that after sitting in the waiting room, he produced a large bowel movement and was unable to urinate. Prior to that, he had gone several hours today without urinating and began to develop severe pain and pressure in his lower abdomen. This has since resolved after urinating. States that he had not had a bowel movement in a couple of days, and believes that the retention may have been caused by the constipation. - Related Data Home Medications Medication Instructions Recorded Confirmed Empagliflozin [Jardiance] 25 mg PO W/SUPPER 01/09/23 01/09/23 amLODIPine BESYLATE/BENAZEPRIL 1 cap PO DAILY 01/09/23 01/09/23 [amLODIPine BESYLATE/BENAZEPRIL 5-10 mg] metFORMIN HCL 1,000 mg PO BID 01/09/23 01/09/23 Previous Rx's Medication Instructions Recorded Sulfamethox-Tmp 800-160Mg [Bactrim 1 each PO Q12HR #14 tab 04/29/23 Ds] Levofloxacin [Levaquin] 750 mg PO DAILY 5 Days #5 tab 07/14/23 Allergies Allergy/AdvReac Type Severity Reaction Status Date / Time latex Allergy Rash/Hives Verified 07/14/23 18:25 Penicillins Allergy Unknown Verified 07/14/23 18:25 Childhood Review of Systems ROS Statement: Those systems with pertinent positive or pertinent negative responses have been documented in the HPI. ROS Other: All systems not noted in ROS Statement are negative. 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 History of Any Multi-Drug Resistant Organisms: None Reported Past Surgical History: No Surgical Hx Reported Past Psychological History: No Psychological Hx Reported Smoking Status: Never smoker Past Alcohol Use History: Rare Past Drug Use History: None Reported General Exam Limitations: no limitations General appearance: alert, in no apparent distress Head exam: Present: atraumatic, normocephalic, normal inspection Respiratory exam: Present: normal lung sounds bilaterally. Absent: respiratory distress, wheezes, rales, rhonchi, stridor Cardiovascular Exam: Present: regular rate, normal rhythm, normal heart sounds. Absent: systolic murmur, diastolic murmur, rubs, gallop, clicks GI/Abdominal exam: Present: soft, normal bowel sounds. Absent: distended, tenderness, guarding, rebound, rigid Neurological exam: Present: alert, oriented X3, CN II-XII intact Psychiatric exam: Present: normal affect, normal mood Skin exam: Present: warm, dry, intact, normal color. Absent: rash Course Vital Signs 07/14/23 18:23 Temperature 98.1 F Pulse Rate 107 H Respiratory 18 Rate Blood Pressure 167/99 O2 Sat by Pulse 97 Oximetry Medical Decision Making - Medical Decision Making This is a 73-year-old male who presents to the emergency department for urinary retention. Was pt. sent in by a medical professional or institution? @ -No Did you speak to anyone other than the patient for history? @ -No Did you review nursing and triage notes? @ -Yes, and I agree, it is accurate with regards to the patient's symptoms. Were old charts reviewed? @ -Urine culture from 07/01/23, which did not grow any bacteria. Urine culture from 04/29/23 grew pseudomonas aeruginosa. Differential Diagnosis? @ -Differential Urinary Retention: UTI, constipation, nerve problem, tumor, ureteral calculus, this is not meant to be an all-inclusive list. EKG interpreted by me (3pts min.)? @ -Not obtained X-rays interpreted by me (1pt min.)? @ -Not obtained CT interpreted by me (1pt min.)? @ -Not obtained U/S interpreted by me (1pt. min.)? @ -Not obtained What testing was considered but not performed? (CT, X-rays, U/S, labs)? Why? @ -None What meds were considered but not given? Why? @ -None Did you discuss the management of the patient with other professionals? @ -No Did you reconcile home meds? @ -No Was smoking cessation discussed for >3mins.? @ -No Was critical care preformed (if so, how long)? @ -No Were there social determinants of health that impacted care today? How? (Homelessness, low income, unemployed, alcoholism, drug addiction, transportation, low edu. Level, literacy, decrease access to med. care, [facility], rehab)? @ -No Was there de-escalation of care discussed even if they declined? (Discuss DNR or withdrawal of care, Hospice)? @ -No What co-morbidities impacted this encounter? (DM, HTN, Smoking, COPD, CAD, Cancer, CVA, Hep., AIDS, mental health diagnosis, sleep apnea, morbid obesity)? @ -Hx of TIA Was patient admitted / discharged? @ -Discharged. While the patient was waiting in the waiting room, he had a large bowel movement and was then able to urinate. Afterwards he did feel much better. We then did a bladder scan and 772 mL of urine was still in the bladder. Given the large amount urine still retained in the bladder, I did recommend a Camacho catheter, however if he refused this, at the very least a straight cath would be beneficial. Patient requested to proceed with a straight cath. This was subsequently performed and just under 800 mL was removed from the bladder. A large blood clot was also evacuated, which also likely contributed to the retention. Urinalysis is suggestive of infection and urine was sent for culture. I reviewed the urine culture from 07/01/23, which did not grow any bacteria. Urine culture from 04/29/23 however grew pseudomonas aeruginosa. On review of the antibiotic diagram from 04/29, Levaquin was shown to be effective. He was given a dose of Levaquin in the emergency department and a prescription for this was provided. He was given strict return parameters, in that if the urinary retention returns, he needs to return to the emergency department. He will otherwise follow up with Dr. Bryan. Undiagnosed new problem with uncertain prognosis? @ -None Drug Therapy requiring intensive monitoring for toxicity (Heparin, Nitro, Insulin, Cardizem)? @ -None Were any procedures done? @ -None Diagnosis/symptom? @ -Urinary retention, UTI Acute, or Chronic, or Acute on Chronic? @ -Acute Uncomplicated (without systemic symptoms) or Complicated (systemic symptoms)? @ -Uncomplicated Side effects of treatment? @ -None Exacerbation, Progression, or Severe Exacerbation] @ -Not applicable Poses a threat to life or bodily function? @ -Not at this time Return precautions reviewed in depth, the patient is instructed to return to the emergency department with any new, worsening, or concerning symptoms. Patient verbalized understanding. This case was discussed in detail with the attending ED physician, Dr. Mcgee. Presentation, findings, and treatment plan discussed in detail as well. - Lab Data Lab Results 07/14/23 Range/Units 19:38 Urine Color Colorless Urine Appearance Clear (Clear) Urine pH 5.5 (5.0-8.0) Ur Specific [place] 1.020 (1.001-1.035) Urine Protein Trace H (Negative) Urine Glucose (UA) 4+ H (Negative) Urine Ketones Negative (Negative) Urine Blood Large H (Negative) Urine Nitrite Negative (Negative) Urine Bilirubin Negative (Negative) Urine Urobilinogen <2.0 (<2.0) mg/dL Ur Leukocyte Esterase Large H (Negative) Urine RBC 22 H (0-5) /hpf Urine WBC 173 H (0-5) /hpf Disposition Clinical Impression: Urinary retention, UTI (urinary tract infection) Disposition: HOME SELF-CARE Instructions (If sedation given, give patient instructions): Urinary Retention in Men (ED), Urinary Tract Infection in Men (ED) Additional Instructions: Return to the emergency department with any new, worsening, or concerning symptoms, especially if you are unable to urinate again. Take the antibiotic as prescribed for 5 days. Follow up with Dr. Bryan. Prescriptions: Levofloxacin [Levaquin] 750 mg PO DAILY 5 Days #5 tab Is patient prescribed a controlled substance at d/c from ED?: No Referrals: Dane Parada MD [Primary Care Provider] - 1-2 days
[2023-07-14 19:56] LABS: Appearance,Urine Clear (Clear); Bilirubin,Urine Negative (Negative); Blood,Urine Large (Negative); Color,Urine Colorless; Glucose,Urine (UA) 4+ (Negative); Ketones,Urine Negative (Negative); Leukocyte Esterase,Urine Large (Negative); Nitrite,Urine Negative (Negative); PH, Urine 5.5 (5.0-8.0); Protein,Urine Trace (Negative); RBC,Urine 22 /hpf (0-5); Urobilinogen,Urine <2.0 mg/dL (<2.0); WBC,Urine 173 /hpf (0-5)
[2023-07-14] MEDS ORDERED: LEVOFLOXACIN 750 MG TAB PO STA (20:13)
[2023-07-14 20:56] VITALS: BP 160/87; PULSE 74; RESP 16
== END 2023-07-14 20:36 | disposition home or self-care (01) ==
LOC: EC 17:53
DX: N39.0 Urinary tract infection, site not specified (principal); I10 Essential (primary) hypertension; Z79.84 Long term (current) use of oral hypoglycemic drugs; Z79.899 Other long term (current) drug therapy; Z88.0 Allergy status to penicillin; Z91.040 Latex allergy status
CPT/HCPCS: 81001; 87086; 99283

== ENCOUNTER 2023-07-15 22:24 | Emergency (ER) | payer MEDICARE ==
--- NOTE | 2023-07-15 22:29 | ED ---
General Adult HPI - General Stated complaint: trouble urinating Time Seen by Provider: 07/15/23 22:26 Source: patient, RN notes reviewed Mode of arrival: ambulatory Limitations: no limitations - History of Present Illness Initial comments: 73-year-old male presents emergency Department with chief complaint of urinary retention. Patient states she seen her last night he states he is able to get some urine out and then had a straight catheterization. Patient states that he's had minimal output today states he feels like he can't go is having increasing pain in symptoms. Patient states she's been having on and off issues for a few months. He is scheduled follow-up with urology this week. - Related Data Home Medications Medication Instructions Recorded Confirmed Empagliflozin [Jardiance] 25 mg PO W/SUPPER 01/09/23 01/09/23 amLODIPine BESYLATE/BENAZEPRIL 1 cap PO DAILY 01/09/23 01/09/23 [amLODIPine BESYLATE/BENAZEPRIL 5-10 mg] metFORMIN HCL 1,000 mg PO BID 01/09/23 01/09/23 Previous Rx's Medication Instructions Recorded Sulfamethox-Tmp 800-160Mg [Bactrim 1 each PO Q12HR #14 tab 04/29/23 Ds] Levofloxacin [Levaquin] 750 mg PO DAILY 5 Days #5 tab 07/14/23 Allergies Allergy/AdvReac Type Severity Reaction Status Date / Time latex Allergy Rash/Hives Verified 07/15/23 22:32 Penicillins Allergy Unknown Verified 07/15/23 22:32 Childhood Review of Systems ROS Statement: Those systems with pertinent positive or pertinent negative responses have been documented in the HPI. ROS Other: All systems not noted in ROS Statement are negative. 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 History of Any Multi-Drug Resistant Organisms: None Reported Past Surgical History: No Surgical Hx Reported Past Psychological History: No Psychological Hx Reported Smoking Status: Never smoker Past Alcohol Use History: Rare Past Drug Use History: None Reported General Exam Limitations: no limitations General appearance: alert, in no apparent distress Head exam: Present: atraumatic, normocephalic, normal inspection Eye exam: Present: normal appearance, PERRL, EOMI. Absent: scleral icterus, conjunctival injection, periorbital swelling ENT exam: Present: normal exam, normal oropharynx, mucous membranes moist Neck exam: Present: normal inspection, full ROM. Absent: tenderness, meningismus, lymphadenopathy Respiratory exam: Present: normal lung sounds bilaterally. Absent: respiratory distress, wheezes, rales, rhonchi, stridor Cardiovascular Exam: Present: regular rate, normal rhythm, normal heart sounds. Absent: systolic murmur, diastolic murmur, rubs, gallop, clicks GI/Abdominal exam: Present: soft, tenderness, normal bowel sounds. Absent: distended, guarding, rebound, rigid Course Vital Signs 07/15/23 22:30 Temperature 98.6 F Pulse Rate 104 H Respiratory 20 Rate Blood Pressure 166/104 O2 Sat by Pulse 97 Oximetry Medical Decision Making - Medical Decision Making Was pt. sent in by a medical professional or institution (JULIA Prater, SECURITY ARCHITECT, urgent care, hospital, or [facility]...) When possible be specific @ -No Did you speak to anyone other than the patient for history (EMS, parent, family, police, friend...)? What history was obtained from this source @ -No Did you review nursing and triage notes (agree or disagree)? Why? @ -I reviewed and agree with nursing and triage notes Were old charts reviewed (outside hosp., previous admission, EMS record, old EKG, old radiological studies, urgent care reports/EKG's, [facility] records)? Report findings @ -Reviewed charting from yesterday, urinalysis Differential Diagnosis (chest pain, altered mental status, abdominal pain women, abdominal pain men, vaginal bleeding, weakness, fever, dyspnea, syncope, headache, dizziness, GI bleed, back pain, seizure, CVA, palpatations, mental health, musculoskeletal)? @ -[Retention, UTI EKG interpreted by me (3pts min.). @ -[None X-rays interpreted by me (1pt min.). @ -None done CT interpreted by me (1pt min.). @ -None done U/S interpreted by me (1pt. min.). @ -None done What testing was considered but not performed or refused? (CT, X-rays, U/S, labs)? Why? @ -None What meds were considered but not given or refused? Why? @ -None Did you discuss the management of the patient with other professionals (professionals i.e. , PA, SECURITY ARCHITECT, lab, RT, psych nurse, social services technician, double reamer operator, teacher, eeo officer, clinical case manager)? Give summary @ -No Was smoking cessation discussed for >3mins.? @ -No Was critical care preformed (if so, how long)? @ -No Were there social determinants of health that impacted care today? How? (Homelessness, low income, unemployed, alcoholism, drug addiction, transportation, low edu. Level, literacy, decrease access to med. care, care home, rehab)? @ -No Was there de-escalation of care discussed even if they declined (Discuss DNR or withdrawal of care, Hospice)? DNR status @ -No What co-morbidities impacted this encounter? (DM, HTN, Smoking, COPD, CAD, Cancer, CVA, ARF, Chemo, Hep., AIDS, mental health diagnosis, sleep apnea, morbid obesity)? @ -None Was patient admitted / discharged? Hospital course, mention meds given and route, prescriptions, significant lab abnormalities, going to OR and other pertinent info. @ -Discharge patient was observed for your urinary retention Camacho catheter was placed with no comp patients patient is currently on antibiotics for UTI will follow-up with urology this week. Undiagnosed new problem with uncertain prognosis? @ -No Drug Therapy requiring intensive monitoring for toxicity (Heparin, Nitro, Insulin, Cardizem)? @ -No Were any procedures done? @ -No Diagnosis/symptom? @ -Urinary retention Acute, or Chronic, or Acute on Chronic? @ -Acute Uncomplicated (without systemic symptoms) or Complicated (systemic symptoms)? @ -Uncomplicated Side effects of treatment? @ -No Exacerbation, Progression, or Severe Exacerbation? @ -No Poses a threat to life or bodily function? How? (Chest pain, [place], [place], pneumonia, PE, COPD, DKA, ARF, appy, cholecystitis, CVA, Diverticulitis, Homicidal, Suicidal, threat to staff... and all critical care pts) @ -No Disposition Clinical Impression: Urinary retention, UTI (urinary tract infection) Disposition: HOME SELF-CARE Condition: Stable Additional Instructions: Please return to the Emergency Department if symptoms worsen or any other concerns. Is patient prescribed a controlled substance at d/c from ED?: No Referrals: Dane Parada MD [Primary Care Provider] - 1-2 days Time of Disposition: 22:29
[2023-07-15 23:34] VITALS: BP 136/71; PULSE 77; RESP 15; TEMP 97.4
== END 2023-07-15 23:28 | disposition home or self-care (01) ==
LOC: EC 22:24
DX: N39.0 Urinary tract infection, site not specified (principal); I10 Essential (primary) hypertension; Z79.899 Other long term (current) drug therapy; Z88.0 Allergy status to penicillin; Z91.040 Latex allergy status
CPT/HCPCS: 51702; 99283

== ENCOUNTER 2023-08-05 13:00 | Emergency (ER) | payer MEDICARE ==
[2023-08-05 13:25] VITALS: BP 164/89; PULSE 86; RESP 18; TEMP 98.8
--- NOTE | 2023-08-05 13:54 | ED ---
General Adult HPI - General Chief complaint: Urogenital Stated complaint: Bladder Retention Time Seen by Provider: 08/05/23 13:19 Source: patient, RN notes reviewed, old records reviewed Mode of arrival: ambulatory Limitations: no limitations - History of Present Illness Initial comments: 73 yo male presenting for evaluation of urinary retention. Patient has history of chronic retention and has required catheterization on multiple occasions. He states he had a cold catheter removed approximately 2 weeks ago and has been doing well since then. He is on antiplatelet agent for history of CVA. Had some intermittent hematuria. - Related Data Home Medications Medication Instructions Recorded Confirmed Empagliflozin [Jardiance] 25 mg PO DAILY 01/09/23 08/05/23 Aspirin EC [Ecotrin Low Dose] 81 mg PO HS 08/05/23 08/05/23 Atorvastatin Calcium [Lipitor] 80 mg PO HS 08/05/23 08/05/23 Ticagrelor [Brilinta] 45 mg PO BID 08/05/23 08/05/23 amLODIPine [Norvasc] 10 mg PO DAILY 08/05/23 08/05/23 Previous Rx's Medication Instructions Recorded Cephalexin [Keflex] 500 mg PO Q12HR 7 Days #14 cap 08/05/23 Allergies Allergy/AdvReac Type Severity Reaction Status Date / Time latex Allergy Rash/Hives Verified 08/05/23 14:33 Penicillins Allergy Rash/Hives Verified 08/05/23 14:33 Review of Systems ROS Statement: Those systems with pertinent positive or pertinent negative responses have been documented in the HPI. ROS Other: All systems not noted in ROS Statement are negative. 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 History of Any Multi-Drug Resistant Organisms: None Reported Past Surgical History: No Surgical Hx Reported Past Psychological History: No Psychological Hx Reported Smoking Status: Never smoker Past Alcohol Use History: Rare Past Drug Use History: None Reported General Exam Limitations: no limitations General appearance: alert, in no apparent distress Head exam: Present: atraumatic, normocephalic Eye exam: Present: normal appearance, PERRL ENT exam: Present: normal exam Neck exam: Present: normal inspection. Absent: tenderness, meningismus Respiratory exam: Absent: respiratory distress Cardiovascular Exam: Present: regular rate, normal rhythm GI/Abdominal exam: Present: soft. Absent: distended Extremities exam: Present: normal inspection, normal capillary refill Neurological exam: Present: alert, oriented X3, CN II-XII intact. Absent: motor sensory deficit Psychiatric exam: Present: normal affect, normal mood Skin exam: Present: warm, dry, intact Course Vital Signs 08/05/23 13:13 Temperature 98.8 F Pulse Rate 86 Respiratory 18 Rate Blood Pressure 164/89 O2 Sat by Pulse 98 Oximetry Medical Decision Making - Medical Decision Making Was pt. sent in by a medical professional or institution (, JULIA, DISPATCH COORDINATOR, urgent care, hospital, or assisted...) When possible be specific @ -No Did you speak to anyone other than the patient for history (EMS, parent, family, police, friend...)? What history was obtained from this source @ -No Did you review nursing and triage notes (agree or disagree)? Why? @ -I reviewed and agree with nursing and triage notes Were old charts reviewed (outside hosp., previous admission, EMS record, old EKG, old radiological studies, urgent care reports/EKG's, assisted records)? Report findings @ -No old charts were reviewed Differential Diagnosis (chest pain, altered mental status, abdominal pain women, abdominal pain men, vaginal bleeding, weakness, fever, dyspnea, syncope, headache, dizziness, GI bleed, back pain, seizure, CVA, palpatations, mental health, musculoskeletal)? @ UTI, hematuria, urinary retention EKG interpreted by me (3pts min.). @ -As above X-rays interpreted by me (1pt min.). @ -None done CT interpreted by me (1pt min.). @ -None done U/S interpreted by me (1pt. min.). @ -None done What testing was considered but not performed or refused? (CT, X-rays, U/S, labs)? Why? @ -None What meds were considered but not given or refused? Why? @ -None Did you discuss the management of the patient with other professionals (professionals i.e. JULIA Prater, DISPATCH COORDINATOR, lab, RT, psych nurse, social services director, v belt mold assembler and curer, teacher, compliance officer, caseworker)? Give summary @ -No Was smoking cessation discussed for >3mins.? @ -No Was critical care preformed (if so, how long)? @ -No Were there social determinants of health that impacted care today? How? (Homelessness, low income, unemployed, alcoholism, drug addiction, transportation, low edu. Level, literacy, decrease access to med. care, penitentiary, rehab)? @ -No Was there de-escalation of care discussed even if they declined (Discuss DNR or withdrawal of care, Hospice)? DNR status @ -No What co-morbidities impacted this encounter? (DM, HTN, Smoking, COPD, CAD, Cancer, CVA, ARF, Chemo, Hep., AIDS, mental health diagnosis, sleep apnea, morbid obesity)? @ -None Was patient admitted / discharged? Hospital course, mention meds given and route , prescriptions, significant lab abnormalities, going to OR and other pertinent info. @ 73 male with hematuria and urinary retention. Patient has had this he tends the past he requests state straight cath rather than Camacho cath. He straight cath in the urine with significant urine output. He feels 100% better. He does have hematuria. He will be covered with oral antibiotics. He should follow with urology and return as needed. Undiagnosed new problem with uncertain prognosis? @ -No Drug Therapy requiring intensive monitoring for toxicity (Heparin, Nitro, Insulin, Cardizem)? @ -No Were any procedures done? @ -No Diagnosis/symptom? @ -Urinary retention, hematuria Acute, or Chronic, or Acute on Chronic? @ -[Acute Uncomplicated (without systemic symptoms) or Complicated (systemic symptoms)? @ -default Side effects of treatment? @ -No Exacerbation, Progression, or Severe Exacerbation? @ -No Poses a threat to life or bodily function? How? (Chest pain, [place], [place], pneumonia, PE, COPD, DKA, ARF, appy, cholecystitis, CVA, Diverticulitis, Homicidal, Suicidal, threat to staff... and all critical care pts) @ -No - Lab Data Lab Results 08/05/23 Range/Units 14:24 Urine Color Light Yellow Urine Appearance Clear (Clear) Urine pH 5.5 (5.0-8.0) Ur Specific [place] 1.022 (1.001-1.035) Urine Protein 1+ H (Negative) Urine Glucose (UA) 4+ H (Negative) Urine Ketones Negative (Negative) Urine Blood Large H (Negative) Urine Nitrite Negative (Negative) Urine Bilirubin Negative (Negative) Urine Urobilinogen <2.0 (<2.0) mg/dL Ur Leukocyte Esterase Trace H (Negative) Urine RBC >182 H (0-5) /hpf Urine WBC 35 H (0-5) /hpf Ur Squamous Epith Cells <1 (0-4) /hpf Urine Mucus Rare H (None) /hpf Disposition Clinical Impression: Urinary retention Disposition: HOME SELF-CARE Condition: Good Instructions (If sedation given, give patient instructions): Urinary Retention in Men (ED) Prescriptions: Cephalexin [Keflex] 500 mg PO Q12HR 7 Days #14 cap Is patient prescribed a controlled substance at d/c from ED?: No Referrals: Dane Parada MD [Primary Care Provider] - 1-2 days Oracio Bryan MD [STAFF PHYSICIAN] - 1-2 days Time of Disposition: 14:48
[2023-08-05 14:39] LABS: Appearance,Urine Clear (Clear); Bilirubin,Urine Negative (Negative); Blood,Urine Large (Negative); Color,Urine Light Yellow; Glucose,Urine (UA) 4+ (Negative); Ketones,Urine Negative (Negative); Leukocyte Esterase,Urine Trace (Negative); Mucus,Urine Rare /hpf; Nitrite,Urine Negative (Negative); PH, Urine 5.5 (5.0-8.0); Protein,Urine 1+ (Negative); RBC,Urine >182 /hpf (0-5); Specific Gravity,Urine 1.022 (1.001-1.035); Squamous Epithelial Cell,Urine <1 /hpf (0-4); Urobilinogen,Urine <2.0 mg/dL (<2.0); WBC,Urine 35 /hpf (0-5)
== END 2023-08-05 14:56 | disposition home or self-care (01) ==
LOC: EC 13:00
DX: R33.9 Retention of urine, unspecified (principal); I10 Essential (primary) hypertension; Z79.82 Long term (current) use of aspirin; Z79.899 Other long term (current) drug therapy; Z88.0 Allergy status to penicillin; Z91.040 Latex allergy status
CPT/HCPCS: 51702; 81001; 99283

== ENCOUNTER 2023-08-05 20:09 | Emergency (ER) | payer MEDICARE ==
[2023-08-05 21:03] VITALS: RESP 18
--- NOTE | 2023-08-05 21:49 | ED ---
Male Urogenital HPI - General Chief complaint: Urogenital Stated complaint: unable to urinate Time Seen by Provider: 08/05/23 20:29 Source: patient Mode of arrival: ambulatory Limitations: no limitations - History of Present Illness Initial comments: 73-year-old male presenting with chief complaint of urinary retention. Patient was seen here early this morning for the same complaint, he was straight cathed and started on antibiotics for UTI. Patient states that he has had recurrent issues with urinary retention for several months, he currently follows with Dr. Hernandez. He has not been able to urinate since leaving our ER this morning. He admits to suprapubic pressure. - Related Data Home Medications Medication Instructions Recorded Confirmed Empagliflozin [Jardiance] 25 mg PO DAILY 01/09/23 08/05/23 Aspirin EC [Ecotrin Low Dose] 81 mg PO HS 08/05/23 08/05/23 Atorvastatin Calcium [Lipitor] 80 mg PO HS 08/05/23 08/05/23 Ticagrelor [Brilinta] 45 mg PO BID 08/05/23 08/05/23 amLODIPine [Norvasc] 10 mg PO DAILY 08/05/23 08/05/23 Previous Rx's Medication Instructions Recorded Cephalexin [Keflex] 500 mg PO Q12HR 7 Days #14 cap 08/05/23 Allergies Allergy/AdvReac Type Severity Reaction Status Date / Time latex Allergy Rash/Hives Verified 08/05/23 20:53 Penicillins Allergy Rash/Hives Verified 08/05/23 20:53 Review of Systems ROS Statement: Those systems with pertinent positive or pertinent negative responses have been documented in the HPI. ROS Other: All systems not noted in ROS Statement are negative. 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 History of Any Multi-Drug Resistant Organisms: None Reported Past Surgical History: No Surgical Hx Reported Past Psychological History: No Psychological Hx Reported Smoking Status: Never smoker Past Alcohol Use History: Rare Past Drug Use History: None Reported General Exam Limitations: no limitations General appearance: alert, in no apparent distress Head exam: Present: atraumatic, normocephalic Eye exam: Present: normal appearance Neck exam: Present: normal inspection Respiratory exam: Absent: respiratory distress Cardiovascular Exam: Present: regular rate Neurological exam: Present: alert, oriented X3 Psychiatric exam: Present: normal affect, normal mood Skin exam: Present: warm, dry Course Vital Signs 08/05/23 08/05/23 20:23 22:13 Temperature 98 F 98.3 F Pulse Rate 95 87 Respiratory 18 18 Rate Blood Pressure 179/99 148/87 O2 Sat by Pulse 99 99 Oximetry Medical Decision Making - Medical Decision Making Was pt. sent in by a medical professional or institution (, JULIA, SEMI DRIVER, urgent care, hospital, or fdc...) When possible be specific @ -No Did you speak to anyone other than the patient for history (EMS, parent, family, police, friend...)? What history was obtained from this source @ -No Did you review nursing and triage notes (agree or disagree)? Why? @ -I reviewed and agree with nursing and triage notes Were old charts reviewed (outside hosp., previous admission, EMS record, old EKG, old radiological studies, urgent care reports/EKG's, [facility] records)? Report findings @ -This morning's ER visit is reviewed Differential Diagnosis (chest pain, altered mental status, abdominal pain women, abdominal pain men, vaginal bleeding, weakness, fever, dyspnea, syncope, headache, dizziness, GI bleed, back pain, seizure, CVA, palpatations, mental health, musculoskeletal)? @ -not applicable EKG interpreted by me (3pts min.). @ -As above X-rays interpreted by me (1pt min.). @ -None done CT interpreted by me (1pt min.). @ -None done U/S interpreted by me (1pt. min.). @ -None done What testing was considered but not performed or refused? (CT, X-rays, U/S, labs)? Why? @ -None What meds were considered but not given or refused? Why? @ -None Did you discuss the management of the patient with other professionals (professionals i.e. JULIA Prater, SEMI DRIVER, lab, RT, psych nurse, high school social studies tutor, publications manager, teacher, forest fire officer, employment evaluator/case manager)? Give summary @ -No Was smoking cessation discussed for >3mins.? @ -No Was critical care preformed (if so, how long)? @ -No Were there social determinants of health that impacted care today? How? (Homelessness, low income, unemployed, alcoholism, drug addiction, transportation, low edu. Level, literacy, decrease access to med. care, penitentiary, rehab)? @ -No Was there de-escalation of care discussed even if they declined (Discuss DNR or withdrawal of care, Hospice)? DNR status @ -No What co-morbidities impacted this encounter? (DM, HTN, Smoking, COPD, CAD, Cancer, CVA, ARF, Chemo, Hep., AIDS, mental health diagnosis, sleep apnea, morbid obesity)? @ -None Was patient admitted / discharged? Hospital course, mention meds given and route, prescriptions, significant lab abnormalities, going to OR and other pertinent info. @ -73-year-old male presenting with chief complaint of urinary retention. He was seen here this morning and started on antibiotics after straight cath. He has been unable to urinate since leaving the ER. Bladder scan shows greater than 300 mL. Camacho catheter is placed, patient experiences instant relief of his suprapubic pressure. He is instructed to continue with his antibiotics and follow up with his neurologist Dr. Bryan. Follow-up with PCP. Report back to ER with any new or worsening symptoms. Discussed return parameters and answered all questions. Patient conveyed verbal understanding and agreed to the plan. I discussed this case in detail with my attending Dr. Lopez Undiagnosed new problem with uncertain prognosis? @ -No Drug Therapy requiring intensive monitoring for toxicity (Heparin, Nitro, Insulin, Cardizem)? @ -No Were any procedures done? @ -No Diagnosis/symptom? @ -Urinary retention Acute, or Chronic, or Acute on Chronic? @ -Acute Uncomplicated (without systemic symptoms) or Complicated (systemic symptoms)? @ -Complicated Side effects of treatment? @ -No Exacerbation, Progression, or Severe Exacerbation? @ -No Poses a threat to life or bodily function? How? (Chest pain, [place], [place], pneumonia, PE, COPD, DKA, ARF, appy, cholecystitis, CVA, Diverticulitis, Homicidal, Suicidal, threat to staff... and all critical care pts) @ -No Disposition Clinical Impression: Urinary retention Disposition: HOME SELF-CARE Condition: Good Instructions (If sedation given, give patient instructions): Urinary Retention in Men (ED) Additional Instructions: Follow up with urology. Report back to ER with any new or worsening symptoms. Is patient prescribed a controlled substance at d/c from ED?: No Referrals: Dane Parada MD [Primary Care Provider] - 1-2 days Time of Disposition: 21:48
[2023-08-05 22:30] VITALS: BP 148/87; PULSE 87; TEMP 98.3
== END 2023-08-05 22:13 | disposition home or self-care (01) ==
LOC: EC 20:09
DX: R33.9 Retention of urine, unspecified (principal); I10 Essential (primary) hypertension; Z79.82 Long term (current) use of aspirin; Z79.02 Long term (current) use of antithrombotics/antiplatelets; Z79.899 Other long term (current) drug therapy; Z88.0 Allergy status to penicillin; Z91.040 Latex allergy status
CPT/HCPCS: 51702; 99284

== ENCOUNTER → 2023-09-08 | Outpatient (CLI) | payer MEDICARE ==
--- NOTE | 2023-09-09 14:03 | US ---
EXAMINATION TYPE: US kidneys/renal and bladder DATE OF EXAM: 09/08/2023 COMPARISON: NONE CLINICAL INDICATION: Male, 73 years old with history of N17.9 ACUTE KIDNEY FAILURE, UNSPECIFIED; VIRY Abn kidney function test UTI EXAM MEASUREMENTS: Right Kidney: 11.1 x 4.4 x 4.2 cm Left Kidney: 10.4 x 5.3 x 4.2 cm Right Kidney: Mild hydronephrosis. Left Kidney: No hydronephrosis or masses seen Bladder: wnl Bilateral Jets seen: Yes IMPRESSION: Mild right-sided hydronephrosis.
== END | disposition home or self-care (01) ==
LOC: RADUSWWP 15:49
PROVIDERS: ATTEND Family Medicine
DX: N17.9 Acute kidney failure, unspecified (principal); N13.6 Pyonephrosis
CPT/HCPCS: 76770

== ENCOUNTER → 2023-11-25 | Outpatient (CLI) | payer MEDICARE ==
[2023-11-25 15:01] LABS: Appearance,Urine Clear (Clear); Bilirubin,Urine Negative (Negative); Blood,Urine Negative (Negative); Color,Urine Yellow (Yellow); Ketones,Urine Negative (Negative); Nitrite,Urine Negative (Negative); PH, Urine 5.5; Specific Gravity,Urine 1.023 (1.001-1.030); Urobilinogen,Urine 0.2 E.U./DL
[2023-11-25 15:38] LABS: % Iron Saturation 13.38 (15.00-50.00); ALT 24 U/L (10-49); AST 20 U/L (14-35); Albumin 4.9 g/dL (3.8-4.9); Albumin/Globulin Ratio 1.96 Ratio (1.60-3.17); Alkaline Phosphatase 153 U/L (41-126); Calcium 9.7 mg/dL (8.7-10.3); Carbon Dioxide 20.4 mmol/L (21.6-31.8); Chloride 104 mmol/L (96-109); Ferritin 44.1 ng/mL (22.0-322.0); Globulin 2.5 g/dL (1.6-3.3); Glucose 160 mg/dL (70-110); Iron 59 UG/DL (65-175); Magnesium 2.1 mg/dL (1.5-2.4); Phosphorus 4.5 mg/dL (2.4-5.1); Potassium 4.7 mmol/L (3.5-5.5); Sodium 138 mmol/L (135-145); Total Bilirubin 0.5 mg/dL (0.3-1.2); Total Iron Binding Capacity 441 UG/DL (228-460); Total Protein 7.4 g/dL (6.2-8.2); Uric Acid 5.2 mg/dL (3.7-8.7)
[2023-11-25 15:50] LABS: Free Kappa Lt Chain Qnt, Serum 2.24 mg/dL (0.33-1.94); Free Lambda Lt Chain Qnt, Seru 1.48 mg/dL (0.57-2.63)
[2023-11-25 15:53] LABS: HCT 43.7 % (39.6-50.0); HGB 14.1 g/dL (13.0-17.0); MCH 27.3 pg (27.0-32.0); MCHC 32.3 g/dL (32.0-37.0); MCV 84.7 FL (80.0-97.0); NRBC Per 100 WBC 0 X 10*3/uL (0.00-0.01); Platelet Count 195 X 10*3/uL (140-440); RBC 5.16 X 10*6/uL (4.40-5.60); RDW 14.5 % (11.5-14.5); WBC 6.82 X 10*3/uL (4.50-10.00)
[2023-11-25 18:47] LABS: Urine Creatinine 58.4 mg/dL (39.0-259.0)
== END | disposition home or self-care (01) ==
LOC: LABWHC1 09:22
PROVIDERS: ATTEND Internal Medicine
DX: N39.0 Urinary tract infection, site not specified (principal); E55.9 Vitamin D deficiency, unspecified; N25.81 Secondary hyperparathyroidism of renal origin; E11.22 Type 2 diabetes mellitus with diabetic chronic kidney disease; N18.32 Chronic kidney disease, stage 3b; M10.9 Gout, unspecified; R80.9 Proteinuria, unspecified; D63.1 Anemia in chronic kidney disease
CPT/HCPCS: 36415; 80053; 81003; 82043; 82306; 82570; 82728; 83036; 83540; 83550; 83735; 83883; 83970; 84100; 84166; 84550; 85027; 86334

== ENCOUNTER → 2024-03-26 | Outpatient (CLI) | payer MEDICARE ==
[2024-03-26 12:13] LABS: Creatinine,Urine Random 70.2 mg/dL; Protein/Creatinine Ratio,Urine 0.271
[2024-03-26 16:33] LABS: Appearance,Urine Clear (Clear); Bilirubin,Urine Negative (Negative); Blood,Urine Negative (Negative); Color,Urine Yellow (Yellow); Ketones,Urine Negative (Negative); Nitrite,Urine Negative (Negative); PH, Urine 5.5; Specific Gravity,Urine 1.022 (1.001-1.030); Urobilinogen,Urine 0.2 E.U./DL
[2024-03-26 16:41] LABS: HCT 43.7 % (39.6-50.0); HGB 14.3 g/dL (13.0-17.0); MCH 27.8 pg (27.0-32.0); MCHC 32.7 g/dL (32.0-37.0); Mean Platelet Volume 12.3 FL (9.5-12.2); NRBC Per 100 WBC 0 X 10*3/uL (0.00-0.01); Platelet Count 194 X 10*3/uL (140-440); RBC 5.14 X 10*6/uL (4.40-5.60); RDW 14.2 % (11.5-14.5); WBC 7.31 X 10*3/uL (4.50-10.00)
[2024-03-26 17:17] LABS: ALT 34 U/L (10-49); AST 19 U/L (14-35); Albumin 4.9 g/dL (3.8-4.9); Albumin/Globulin Ratio 2.23 Ratio (1.60-3.17); Alkaline Phosphatase 147 U/L (41-126); BUN/Creat Ratio 15.53 Ratio (12.00-20.00); Blood Urea Nitrogen 26.4 mg/dL (9.0-27.0); Calcium 9.5 mg/dL (8.7-10.3); Carbon Dioxide 21.5 mmol/L (21.6-31.8); Chloride 107 mmol/L (96-109); Globulin 2.2 g/dL (1.6-3.3); Glucose 145 mg/dL (70-110); Magnesium 2.1 mg/dL (1.5-2.4); Phosphorus 4.2 mg/dL (2.4-5.1); Potassium 4.9 mmol/L (3.5-5.5); Sodium 141 mmol/L (135-145); Total Bilirubin 0.5 mg/dL (0.3-1.2); Total Protein 7.1 g/dL (6.2-8.2)
[2024-03-26 20:34] LABS: Urine Creatinine 71.4 mg/dL (39.0-259.0)
== END | disposition home or self-care (01) ==
LOC: LABWHC1 10:49
PROVIDERS: ATTEND Internal Medicine Nephrology
DX: N18.32 Chronic kidney disease, stage 3b (principal); D64.9 Anemia, unspecified; N39.0 Urinary tract infection, site not specified; R80.9 Proteinuria, unspecified
CPT/HCPCS: 36415; 80053; 81003; 82043; 82570; 83735; 84100; 84156; 85027

== ENCOUNTER → 2024-07-20 | Outpatient (CLI) | payer MEDICARE ==
[2024-07-20 15:26] LABS: HCT 41.4 % (39.6-50.0); HGB 13.8 g/dL (13.0-17.0); MCH 27.7 pg (27.0-32.0); MCHC 33.3 g/dL (32.0-37.0); Mean Platelet Volume 11.5 FL (9.5-12.2); NRBC Per 100 WBC 0 X 10*3/uL (0.00-0.01); Platelet Count 183 X 10*3/uL (140-440); RBC 4.99 X 10*6/uL (4.40-5.60); RDW 13.9 % (11.5-14.5); WBC 6.86 X 10*3/uL (4.50-10.00)
[2024-07-20 16:28] LABS: BUN/Creat Ratio 16.35 Ratio (12.00-20.00); Blood Urea Nitrogen 27.8 mg/dL (9.0-27.0); Calcium 8.9 mg/dL (8.7-10.3); Carbon Dioxide 17.8 mmol/L (21.6-31.8); Chloride 106 mmol/L (96-109); Glucose 133 mg/dL (70-110); Magnesium 1.9 mg/dL (1.5-2.4); Phosphorus 3.9 mg/dL (2.4-5.1); Potassium 4.6 mmol/L (3.5-5.5); Sodium 139 mmol/L (135-145)
[2024-07-20 22:07] LABS: Urine Creatinine 67.7 mg/dL (39.0-259.0)
== END | disposition home or self-care (01) ==
LOC: LABWHC1 10:26
PROVIDERS: ATTEND Internal Medicine
DX: N18.32 Chronic kidney disease, stage 3b (principal); D63.1 Anemia in chronic kidney disease; R80.9 Proteinuria, unspecified
CPT/HCPCS: 36415; 80048; 82043; 82570; 83735; 84100; 85027

== ENCOUNTER → 2024-12-31 | Outpatient (CLI) | payer MEDICARE ==
[2024-12-31 15:20] LABS: Appearance,Urine Clear (Clear); Bilirubin,Urine Negative (Negative); Blood,Urine Negative (Negative); Color,Urine Yellow (Yellow); Ketones,Urine Negative (Negative); Nitrite,Urine Negative (Negative); Urobilinogen,Urine 0.2 E.U./DL
[2024-12-31 16:50] LABS: % Iron Saturation 19.08 (15.00-50.00); BUN/Creat Ratio 18.71 Ratio (12.00-20.00); Blood Urea Nitrogen 31.8 mg/dL (9.0-27.0); Glucose 130 mg/dL (70-110); Iron 75 UG/DL (65-175); Magnesium 2.1 mg/dL (1.5-2.4); Phosphorus 3.1 mg/dL (2.4-5.1); Total Iron Binding Capacity 393 UG/DL (228-460); Uric Acid 5.2 mg/dL (3.7-8.7)
[2024-12-31 16:51] LABS: ALT 51 U/L (10-49); AST 37 U/L (14-35); Albumin 4.4 g/dL (3.8-4.9); Alkaline Phosphatase 118 U/L (41-126); Calcium 9.2 mg/dL (8.7-10.3); Carbon Dioxide 21.4 mmol/L (21.6-31.8); Chloride 109 mmol/L (96-109); Globulin 2.2 g/dL (1.6-3.3); Potassium 5.2 mmol/L (3.5-5.5); Sodium 143 mmol/L (135-145); Total Bilirubin 0.4 mg/dL (0.3-1.2); Total Protein 6.6 g/dL (6.2-8.2)
[2024-12-31 19:00] LABS: Basophils # (A) 0.03 X 10*3/uL (0.00-0.10); Basophils % (A) 0.5 %; Eosinophils # (A) 0.35 X 10*3/uL (0.04-0.35); Eosinophils % (A) 6.2 %; HCT 42.4 % (39.6-50.0); HGB 13.5 g/dL (13.0-17.0); Lymphocytes # (A) 1.37 X 10*3/uL (0.90-5.00); Lymphocytes % (A) 24.2 %; MCH 27.7 pg (27.0-32.0); MCHC 31.8 g/dL (32.0-37.0); MCV 86.9 FL (80.0-97.0); Mean Platelet Volume 11.7 FL (9.5-12.2); Monocytes # (A) 0.45 X 10*3/uL (0.20-1.00); NRBC Per 100 WBC 0 X 10*3/uL (0.00-0.01); Neutrophils # (A) 3.43 X 10*3/uL (1.80-7.70); Neutrophils % (A) 60.7 %; Platelet Count 174 X 10*3/uL (140-440); RBC 4.88 X 10*6/uL (4.40-5.60); RDW 14.5 % (11.5-14.5); WBC 5.65 X 10*3/uL (4.50-10.00)
[2025-01-03 13:06] LABS: Free Lambda Lt Chain Qnt, Seru 1.83 mg/dL (0.57-2.63)
== END | disposition home or self-care (01) ==
LOC: LABWHC1 11:07
PROVIDERS: ATTEND Internal Medicine
DX: N18.32 Chronic kidney disease, stage 3b (principal); D63.1 Anemia in chronic kidney disease; N39.0 Urinary tract infection, site not specified; E55.9 Vitamin D deficiency, unspecified; N25.81 Secondary hyperparathyroidism of renal origin; R80.9 Proteinuria, unspecified
CPT/HCPCS: 36415; 80053; 81003; 82306; 82728; 83540; 83550; 83735; 83883; 83970; 84100; 84166; 84550; 85025; 86334